=== PATIENT | male | born 1995 | race Hispanic/Latino ===

== ENCOUNTER 2020-09-09 02:11 | Emergency (ER) | payer OTHER ==
[~2020-09-09] VITALS: Ht 157.5 cm; Wt 79.4 kg
[2020-09-09 02:18] VITALS: BP 110/63
[2020-09-09 04:30] VITALS: BP 118/67
== END 2020-09-09 04:41 | disposition home or self-care (01) ==
LOC: EDH 03:05
DX: F43.9 Reaction to severe stress, unspecified (principal)

== ENCOUNTER 2023-09-01 19:09 | Emergency (ER) | payer MEDICAID, OTHER ==
[~2023-09-01] VITALS: Ht 157.5 cm; Wt 82.1 kg
[2023-09-01] MEDS: ACETAMINOPHEN 500 MG TABLET PO ONE (19:51)
[2023-09-01] MEDS ORDERED: KETO10TA2 PO (21:22)
[2023-09-01 21:45] VITALS: BP 118/62; PULSE 64; RESP 16; O2SAT 98
== END 2023-09-01 21:48 | disposition home or self-care (01) ==
LOC: EDH 19:09
DX: S82.391A Other fracture of lower end of right tibia, initial encounter for closed fracture (principal); F41.9 Anxiety disorder, unspecified; F32.A Depression, unspecified; Z98.890 Other specified postprocedural states; X58.XXXA Exposure to other specified factors, initial encounter; Y93.89 Activity, other specified; Y92.89 Other specified places as the place of occurrence of the external cause; Y99.8 Other external cause status
CPT/HCPCS: 73610